=== PATIENT | female | born 1960 | race Caucasian/White ===

== ENCOUNTER 2019-02-12 10:55 | Outpatient (CLI) | payer MEDICAID, SELFPAY ==
[2019-02-12 12:00] LABS: Hemoglobin A1C 5.1 % (4.5-6.2)
[2019-02-12 12:47] LABS: Cholesterol 269 mg/dL (50-200); Triglyceride 129 mg/dL (30-150)
[2019-02-12 12:57] LABS: ALT 45 U/L (12-78); AST 17 U/L (15-37); Alkaline Phosphatase 150 U/L (46-116); Bilirubin, Direct 0.17 mg/dL (0.00-0.20); Bilirubin, Total 0.9 mg/dL (0.2-1.0); Glucose 99 mg/dL (70-100); TSH 2.52 uIU/mL (0.358-3.74); Total Protein 7.6 g/dL (6.4-8.2)
== END 2019-02-12 11:15 ==
PROVIDERS: PCP Nurse Practitioner Family; Visit Provider Nurse Practitioner
DX: F20.9 Schizophrenia, unspecified (principal); F31.9 Bipolar disorder, unspecified; Z79.899 Other long term (current) drug therapy
CPT/HCPCS: 36415; 80076; 82947; 82465; 83036; 84443; 84478

== ENCOUNTER 2021-10-26 18:01 | Outpatient (REF) | payer MEDICAID, SELFPAY ==
[2021-10-26 16:43] LABS: Abs Immature Grans 0.01 10^3/uL (0.0-0.06); Absolute Basophil Count 0.03 10^3/uL (0.0-0.2); Absolute Eosinophil Count 0.14 10^3/uL (0.0-0.7); Absolute Monocyte Count 0.42 10^3/uL (0.1-0.8); Absolute Neutrophil Count 4.54 10^3/uL (1.2-6.7); Basophils % 0.5; Eosinophils % 2.2; HCT 41.7 % (36.0-46.0); HGB 13.2 g/dL (11.2-15.7); Immature Grans % 0.2; Lymphocytes % 17.6; MCH 32.2 pg (27.0-33.0); MCHC 31.7 % (32.0-36.0); MCV 101.7 fL (80-95); MPV 9.6 fL (8.0-11.0); Monocytes % 6.7; Neutrophils % 72.8; Nucleated RBC 0 %; Platelet Count 355 10^3/uL (130-400); RDW 13.2 % (11.7-14.6); RDW-SD 49.4 fL; WBC 6.24 10^3/uL (4.4-10.8)
[2021-10-26 17:11] LABS: Anion Gap 11.2 mmol/L (3-11); BUN 11 mg/dL (7-18); CO2 23.8 mmol/L (21.0-32.0); Calcium 9.1 mg/dL (8.5-10.1); Calculated LDL 132 mg/dL (<100); Chloride 102 mmol/L (98-107); Cholesterol 217 mg/dL (<200); Estimated GFR 56.56 (mL/min/1.73m2); Glucose 89 mg/dL (74-106); HDL Cholesterol 73 mg/dL (40-60); Potassium 4.3 mmol/L (3.5-5.1); Sodium 137 mmol/L (136-145); TSH 1.32 uIU/mL (0.36-3.74); Triglyceride 63 mg/dL (<150)
== END 2021-10-26 18:02 | disposition home or self-care (01) ==
LOC: NCHCN 18:01
PROVIDERS: PCP Nurse Practitioner Family; Visit Provider Nurse Practitioner Family
DX: E78.70 Disorder of bile acid and cholesterol metabolism, unspecified (principal); F42.9 Obsessive-compulsive disorder, unspecified; F32.9 Major depressive disorder, single episode, unspecified
CPT/HCPCS: 80048; 80061; 84443; 85025

== ENCOUNTER → 2022-03-21 01:36 | Outpatient (CLI) | payer MEDICAID, SELFPAY | PROVIDERS: PCP Nurse Practitioner Family; Visit Provider Nurse Practitioner Family ==

== ENCOUNTER 2025-05-06 16:21 | Outpatient (REF) | payer MEDICAID, SELFPAY | END 2025-05-06 16:22 | disposition home or self-care (01) | LOC: LBN 16:21 | PROVIDERS: Visit Provider Nurse Practitioner Family | DX: J02.9 Acute pharyngitis, unspecified (principal) | CPT/HCPCS: 87070 ==